=== PATIENT | female | born 1985 | race Two or more races ===

== ENCOUNTER 2017-11-12 21:58 | Emergency (ER) | payer BC, OTHER ==
[~2017-11-12] VITALS: Ht 162.6 cm; Wt 61.2 kg
[2017-11-12 22:12] VITALS: Ht 162.6 cm; Wt 61.2 kg
[2017-11-12 23:54] VITALS: BP 110/65
== END 2017-11-12 23:54 | disposition home or self-care (01) ==
LOC: ED 21:58
DX: L23.3 Allergic contact dermatitis due to drugs in contact with skin (principal); T49.0X5A Adverse effect of local antifungal, anti-infective and anti-inflammatory drugs, initial encounter; Y92.89 Other specified places as the place of occurrence of the external cause
CPT/HCPCS: J1200; J7512